=== PATIENT | female | born 1980 | race Caucasian/White ===

== ENCOUNTER → 2020-09-25 10:03 | Outpatient (BNVA) | payer BC, SELFPAY | PROVIDERS: Visit Provider Family Medicine | DX: N92.6 Irregular menstruation, unspecified (principal); M25.50 Pain in unspecified joint; F41.9 Anxiety disorder, unspecified; Z68.29 Body mass index [BMI] 29.0-29.9, adult; Z71.89 Other specified counseling | CPT/HCPCS: 84443; 84550; 85651; 86160; 86162; 86235; 86255; 86376; 86431 ==

== ENCOUNTER → 2020-11-21 10:20 | Outpatient (BNVA) | payer BC, SELFPAY | PROVIDERS: Visit Provider Internal Medicine Rheumatology | DX: M19.90 Unspecified osteoarthritis, unspecified site (principal); R76.8 Other specified abnormal immunological findings in serum; Z79.899 Other long term (current) drug therapy; Z11.59 Encounter for screening for other viral diseases; Z11.1 Encounter for screening for respiratory tuberculosis; M45.6 Ankylosing spondylitis lumbar region; M35.9 Systemic involvement of connective tissue, unspecified; Z71.89 Other specified counseling; F17.200 Nicotine dependence, unspecified, uncomplicated | CPT/HCPCS: 99204 ==

== ENCOUNTER 2020-11-21 12:23 | Outpatient (CLI) | payer BC, SELFPAY ==
--- NOTE | 2020-11-21 12:39 | XR_ITS ---
WS: [id number] LEFT HAND: 3 VIEW(S) TECHNIQUE: PA, oblique and lateral. HISTORY: Z79.899 - Other [facility] (current) drug therapy COMPARISON: None available. No acute fracture or dislocation. No soft tissue or bone abnormality. XR/XR hand LT min 3V* [id number] IMPRESSION: Normal LEFT hand.
--- NOTE | 2020-11-21 12:39 | XR_ITS ---
WS: [id number] LEFT FOOT: 3 VIEW(S) TECHNIQUE: AP, oblique and lateral. HISTORY: Z79.899 - Other long-term (current) drug therapy COMPARISON: None available. No acute fracture or dislocation. Normal tarsal/metatarsal alignment. No soft tissue abnormality or bone destruction. XR/XR foot LT min 3V* [id number] IMPRESSION: Normal LEFT foot.
--- NOTE | 2020-11-21 12:39 | XR_ITS ---
WS: [id number] RIGHT HAND: 3 VIEW(S) TECHNIQUE: PA, oblique and lateral. 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 No acute fracture or dislocation. Very mild narrowing of the interphalangeal joints. No erosions or fracture. No osteopenia. XR/XR hand RT min 3V* [id number] IMPRESSION: Mild osteoarthritis.
--- NOTE | 2020-11-21 12:39 | XR_ITS ---
WS: [id number] Lumbar spine, 3 views, 11/21/2020 Clinical Data: Z79.899 - Other [facility] (current) drug therapy Comparison: None. Findings: No compression fractures or subluxation is seen. No disc space narrowing is seen. The transverse proc esses and SI joints are normal. XR/XR lumbar spine 2-3V* [id number] Impression: Negative lumbar spine.
--- NOTE | 2020-11-21 12:39 | XR_ITS ---
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 Bones and soft tissues of the pelvis are intact. No fracture or dislocation. No erosions. XR/XR pelvis 1-2V* [id number] IMPRESSION: Negative pelvis.
--- NOTE | 2020-11-21 12:39 | XR_ITS ---
WS: [id number] RIGHT FOOT: 3 VIEW(S) TECHNIQUE: AP, oblique and lateral. 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 No acute fracture or dislocation. Mild hallux valgus deformity. Mild narrowing of the first metatarsal phalangeal joint. No erosions. No soft tissue abnormality or bone destruction. XR/XR foot RT min 3V* [id number] IMPRESSION: Mild hallux valgus deformity.
[2020-11-21 13:47] LABS: Alanine Aminotransferase 14 U/L (0-33); Albumin Level 3.7 g/dL (3.5-5.2); Alkaline Phosphatase 72 IU/L (35-105); Aspartate Amino Transferase 13 U/L (0-32); C Reactive Protein 6.9 mg/L (0.0-4.9); Globulin 3.1 g/dL (1.3-4.6); Glomerular Filtration Rate 111.9 mL/min (90-130); Total Bilirubin 0.2 mg/dL (0.15-1.2); Total Protein 6.8 g/dL (6.6-8.7)
[2020-11-21 14:03] LABS: 25 Hydroxy Vitamin D 38 ng/mL (30-100)
[2020-11-21 14:25] LABS: Hepatitis B Core AB, Total Non-Reactive (Nonreactive); Hepatitis B Surface Antigen Non-Reactive (Nonreactive); Hepatitis C Virus Antibody Non-Reactive (Nonreactive)
[2020-11-22 11:43] LABS: Erythrocyte Sedimentation Rate 19 mm/hr (0-15)
[2020-11-22 15:13] LABS: Cyclic Citrullinated Peptide <16 UNITS
[2020-11-23 12:17] LABS: HLA-B27 NEGATIVE (NEGATIVE)
[2020-11-23 16:53] LABS: Quantiferon Mitogen 8.65 IU/mL; Quantiferon Nil 0.01 IU/mL; Quantiferon TB Gold NEGATIVE (NEGATIVE)
== END 2020-11-21 12:24 | disposition home or self-care (01) ==
PROVIDERS: PCP Family Medicine; Visit Provider Internal Medicine Rheumatology
DX: M19.90 Unspecified osteoarthritis, unspecified site (principal); Z79.899 Other long term (current) drug therapy; R76.8 Other specified abnormal immunological findings in serum; M45.6 Ankylosing spondylitis lumbar region; Z11.59 Encounter for screening for other viral diseases; Z11.1 Encounter for screening for respiratory tuberculosis
CPT/HCPCS: 36415; 72100; 72170; 73130; 73630; 80076; 82306; 82565; 85651; 86140; 86480; 86704; 86803; 86812; 87340

== ENCOUNTER → 2020-12-05 11:06 | Outpatient (BNVA) | payer BC, SELFPAY | PROVIDERS: PCP Family Medicine; Referring Provider Family Medicine; Visit Provider Obstetrics & Gynecology | DX: N93.9 Abnormal uterine and vaginal bleeding, unspecified (principal) | CPT/HCPCS: 84146; 84443; 85025 ==

== ENCOUNTER → 2021-01-01 15:20 | Outpatient (BNVA) | payer BC, SELFPAY | PROVIDERS: PCP Family Medicine; Visit Provider Obstetrics & Gynecology | DX: N93.9 Abnormal uterine and vaginal bleeding, unspecified (principal) | CPT/HCPCS: 76830 ==

== ENCOUNTER → 2021-01-14 11:37 | Outpatient (BNVA) | payer BC, SELFPAY | PROVIDERS: PCP Family Medicine; Visit Provider Nurse Practitioner Family | DX: Z20.822 Contact with and (suspected) exposure to COVID-19 (principal); Z11.52 Encounter for screening for COVID-19 | CPT/HCPCS: 87635 ==

== ENCOUNTER → 2021-02-01 09:56 | Outpatient (BNVA) | payer BC, SELFPAY | PROVIDERS: PCP Family Medicine; Visit Provider Internal Medicine Rheumatology | DX: M19.90 Unspecified osteoarthritis, unspecified site (principal); R76.8 Other specified abnormal immunological findings in serum; Z79.899 Other long term (current) drug therapy | CPT/HCPCS: 80076; 82565; 85025; 86140 ==

== ENCOUNTER → 2021-02-06 08:45 | Outpatient (BNVA) | payer BC, SELFPAY | PROVIDERS: PCP Family Medicine; Visit Provider Obstetrics & Gynecology | DX: Z30.9 Encounter for contraceptive management, unspecified (principal) | CPT/HCPCS: 81025 ==

== ENCOUNTER 2021-03-05 13:10 | Outpatient (CLI) | payer BC, MEDICAID, SELFPAY ==
--- NOTE | 2021-03-05 13:18 | XR_ITS ---
WS: [id number] CERVICAL SPINE TECHNIQUE: 3 views of the cervical spine CLINICAL INFORMATION: M54.2 - Cervicalgia COMPARISON: None. FINDINGS: Straightening with slight reversal of the normal cervical lordosis. Slight anterolisthesis C3 on C4 a nd C4 on C5. Normal prevertebral soft tissues. Normal C1-C2 articulation. Visualized lung apices are normal. Normal dens. XR/XR cervical spine 3V* [id number] IMPRESSION: 1. Straightening with slight reversal of the normal cervical lordosis. Slight anterolisthesis C3 on C4 and C4 on C5. 2. No acute fractures.
--- NOTE | 2021-03-05 13:18 | XR_ITS ---
WS: [id number] THORACIC SPINE TECHNIQUE: 3 views of the thoracic spine CLINICAL INFORMATION: M54.2 - Cervicalgia COMPARISON: None. FINDINGS: Minimal thoracic curve. Disc space heights and vertebral body heights are well maintained. No acute a ppearing compression fractures. Minimal disc space narrowing lower thoracic spine. XR/XR thoracic spine 3V* [id number] IMPRESSION: No acute thoracic spine findings.
== END 2021-03-05 13:11 | disposition home or self-care (01) ==
PROVIDERS: PCP Family Medicine; Visit Provider Internal Medicine Rheumatology
DX: G89.29 Other chronic pain (principal); M54.2 Cervicalgia; M54.9 Dorsalgia, unspecified
CPT/HCPCS: 72040; 72072

== ENCOUNTER → 2021-03-28 13:45 | Outpatient (BNVA) | payer BC, MEDICAID, SELFPAY | PROVIDERS: PCP Family Medicine; Visit Provider Internal Medicine Rheumatology | DX: M19.90 Unspecified osteoarthritis, unspecified site (principal); M35.9 Systemic involvement of connective tissue, unspecified; Z79.899 Other long term (current) drug therapy; R76.8 Other specified abnormal immunological findings in serum | CPT/HCPCS: 80076; 82565; 85025; 86140 ==

== ENCOUNTER → 2021-06-21 10:27 | Outpatient (BNVA) | payer BC, MEDICAID, SELFPAY | PROVIDERS: PCP Family Medicine; Visit Provider Internal Medicine Rheumatology | DX: M15.9 Polyosteoarthritis, unspecified (principal); R76.8 Other specified abnormal immunological findings in serum; M35.9 Systemic involvement of connective tissue, unspecified | CPT/HCPCS: 99214 ==

== ENCOUNTER 2021-07-23 11:22 | Outpatient (CLI) | payer BC, MEDICAID, SELFPAY ==
--- NOTE | 2021-07-23 11:36 | XR_ITS ---
WS: [id number] Exam: XR knee LT 3V* [id number] Date/Time of Exam: 07/23/2021 11:56 AM Reason For Exam: PAIN IN LEFT KNEE No fracture or dislocation noted. Articular relationships are intact. No joint effusion. XR/XR knee LT 3V* [id number] Impression: Normal knee Kellgren-Kendall Classification: 0
== END 2021-07-23 11:23 | disposition home or self-care (01) ==
PROVIDERS: PCP Family Medicine; Visit Provider Anesthesiology Pain Medicine
DX: M25.562 Pain in left knee (principal)
CPT/HCPCS: 73562

== ENCOUNTER → 2021-10-18 09:01 | Outpatient (BNVA) | payer BC, MEDICAID, SELFPAY | PROVIDERS: PCP Family Medicine; Visit Provider Internal Medicine Rheumatology | DX: M19.90 Unspecified osteoarthritis, unspecified site (principal); M35.9 Systemic involvement of connective tissue, unspecified; Z79.899 Other long term (current) drug therapy | CPT/HCPCS: 80076; 82565; 85025; 86140 ==

== ENCOUNTER → 2021-10-23 10:39 | Outpatient (BNVA) | payer BC, MEDICAID, SELFPAY | PROVIDERS: PCP Family Medicine; Visit Provider Internal Medicine Rheumatology | DX: M15.9 Polyosteoarthritis, unspecified (principal); R76.8 Other specified abnormal immunological findings in serum; M35.9 Systemic involvement of connective tissue, unspecified; Z79.899 Other long term (current) drug therapy; R00.2 Palpitations; R42 Dizziness and giddiness | CPT/HCPCS: 99214 ==

== ENCOUNTER → 2022-01-07 11:44 | Outpatient (BNVA) | payer BC, MEDICAID, SELFPAY | PROVIDERS: PCP Family Medicine; Visit Provider Internal Medicine Rheumatology | DX: Z79.899 Other long term (current) drug therapy (principal); R76.8 Other specified abnormal immunological findings in serum; M19.90 Unspecified osteoarthritis, unspecified site; M35.9 Systemic involvement of connective tissue, unspecified | CPT/HCPCS: 36415; 80076; 81001; 82565; 82570; 84156; 85025; 85651; 86140; 86225; 86235 ==

== ENCOUNTER → 2022-04-29 16:38 | Outpatient (BNVA) | payer BC, MEDICAID, SELFPAY | PROVIDERS: PCP Nurse Practitioner Family; Visit Provider Nurse Practitioner Family | DX: G62.9 Polyneuropathy, unspecified (principal); L65.9 Nonscarring hair loss, unspecified; F41.9 Anxiety disorder, unspecified; F32.A Depression, unspecified | CPT/HCPCS: 80053; 80061; 82607; 84402; 84403 ==